=== PATIENT | female | born 1945 | race African-American/Black ===

== ENCOUNTER 2020-12-21 08:47 | Inpatient (IN) | payer MEDICARE, MEDICAID ==
[2020-12-21] VITALS (7 sets, daily range): BP systolic 123–146; BP diastolic 51–71
[~2020-12-21] VITALS: Ht 165.1 cm; Wt 129.8 kg
[2020-12-21] MEDS ORDERED: DIAZEPAM 2 MG TABLET PO ONE (09:00)
[2020-12-21 09:16] LABS: BASOPHILS % 0.3 % (0.0-2.0); HEMATOCRIT. 40.8 % (36.0-48.0); HEMOGLOBIN. 14.1 g/dL (12.0-16.0); MEAN CORPUSCULAR HEMOGLOBIN 36.5 pg (28.0-32.0); MEAN CORPUSCULAR VOLUME 105.4 fL (81.0-99.0); MEAN PLATELET VOLUME 9.6 fl (7.4-10.4); MONOCYTES % 10.5 % (2.0-8.0); NEUTROPHILS % 79.2 % (40.0-76.0); PLATELET 195 x1000/uL (130-400); RED BLOOD CELL COUNT 3.87 mill/uL (4.2-5.4); RED CELL DISTRIBUTION WIDTH 13.1 % (11.6-14.6)
[2020-12-21 09:23] LABS: CHLORIDE 100 mEq/L (98-107)
[2020-12-21] MEDS ORDERED: SODIUM CHLORIDE 0.9% 1,000 ML IV ONE (09:45)
[2020-12-21] MEDS ORDERED: INSULIN REGULAR (HUMULIN R) 300UNITS/3ML VIAL IV ONE (09:45)
[2020-12-21 10:18] LABS: BG BASE EXCESS -13.2 mmol/L (-2.0-2.0); BG CARBOXYHEMOGLOBIN 0.3 % (0.5-1.5); BG DEOXYHEMOGLOBIN 2.8 % (0.0-5.0); BG FRACTION INSPIRED OXYGEN 21; BG METHEMOGLOBIN 0.3 % (0.0-1.5); BG OXYGEN SATURATION 97.2 % (92.0-98.5); BG OXYHEMOGLOBIN 96.6 % (94.0-97.0); BG PCO2 22.8 mmHg (35.0-45.0); BG PH 7.303 (7.350-7.450); BG PO2 102.8 mmHg (75.0-100.0); BG SAMPLE SITE RIGHT BRACHIAL; BG TOTAL HEMOGLOBIN 14.4 g/dL (12.0-18.0); BG VENT MODE ROOM AIR
[2020-12-21 10:30] LABS: BETA HYDROXYBUTYRATE 7.9 mMol/L (0.0-0.3)
[2020-12-21] MEDS ORDERED: INSULIN REGULAR (DRIP) 100 UNITS in SODIUM CHLORIDE 0.9% 99 ML IV ONE (11:00)
[2020-12-21] MEDS ORDERED: DEXTROSE 50% WATER 50ML SYRINGE IV PRN (12:00)
[2020-12-21] MEDS ORDERED: ASPIRIN 81MG TABLET PO ONE (12:15)
[2020-12-21] MEDS ORDERED: HYDROCODONE/ACETAMINOPHEN 5/325MG TABLET PO PRN (12:30)
[2020-12-21] MEDS ORDERED: CLONIDINE 0.1MG TABLET PO PRN (12:30)
[2020-12-21] MEDS ORDERED: ACETAMINOPHEN 650MG SUPP PR PRN (12:30)
[2020-12-21] MEDS ORDERED: MAGNESIUM/ALUMINUM HYDROXIDE/SIMETHICONE 30ML UDC PO PRN (12:30)
[2020-12-21] MEDS ORDERED: IPRATROPIUM/ALBUTEROL 0.5-3(2.5)MG/3ML NEB NEB PRN (12:30)
[2020-12-21] MEDS ORDERED: DIPHENHYDRAMINE 50MG/ML VIAL IV PRN (12:30)
[2020-12-21] MEDS ORDERED: MORPHINE SULFATE 2 MG/ML CPJ (NOT FOR IM USE) IV PRN (12:30)
[2020-12-21] MEDS ORDERED: GUAIFENESIN 200MG/10ML SUGAR FREE UDC PO PRN (12:30)
[2020-12-21] MEDS ORDERED: ONDANSETRON HCL 4MG/2ML INJ IV PRN (12:30)
[2020-12-21] MEDS ORDERED: NA PHOS,M-B/NA PHOS,DI-BA ENEMA 118ML PR PRN (12:30)
[2020-12-21] MEDS ORDERED: FAMOTIDINE 20MG/2ML VIAL IV SCH (13:00)
[2020-12-21] MEDS ORDERED: PIPERACILLIN/TAZ 3.375G PREMIX 50 ML IV SCH (13:00)
[2020-12-21] MEDS ORDERED: SODIUM CHLORIDE 0.9% 1,000 ML IV SCH ×2 (13:00→18:45)
[2020-12-21] MEDS ORDERED: INSULIN REGULAR (DRIP) 100 UNITS in SODIUM CHLORIDE 0.9% 99 ML IV PRN (13:00)
[2020-12-21 13:19] LABS: PHOSPHORUS 3.6 mg/dL (2.5-4.9)
[2020-12-21 13:22] LABS: PROTHROMBIN TIME 11.2 sec (9.6-11.0)
[2020-12-21 13:23] LABS: CREATINE KINASE MB FRACTION 5.7 ng/mL (0.5-3.6)
[2020-12-21 16:53] LABS: CHLORIDE 112 mEq/L (98-107)
[2020-12-21] MEDS ORDERED: IBUP-2029 PO (18:36)
[2020-12-21] MEDS ORDERED: IBUP-22 PO (18:36)
[2020-12-21] MEDS: BLOOD SUGAR DIAGNOSTIC STRIP TEST SCH ×6 (18:39→23:14)
[2020-12-21] MEDS: FAMOTIDINE 20MG/2ML VIAL IV SCH (18:43)
[2020-12-21 20:13] LABS: CHLORIDE 112 mEq/L (98-107)
[2020-12-21] MEDS: PIPERACILLIN/TAZOBACTAM 3.375 G in DEXT 5% WATER 100 ML IV SCH (21:05)
[2020-12-21] MEDS: ENOXAPARIN 40MG/0.4ML SYR SUBCUT SCH (21:06)
[2020-12-21 23:26] LABS: CREATINE KINASE MB FRACTION 5.4 ng/mL (0.5-3.6)
[2020-12-22] VITALS (46 sets, daily range): BP systolic 79–180; BP diastolic 28–144
[2020-12-22 00:20] LABS: CHLORIDE 116 mEq/L (98-107)
[2020-12-22] MEDS: BLOOD SUGAR DIAGNOSTIC STRIP TEST SCH ×10 (01:33→21:12)
[2020-12-22] MEDS: DEXT 5%/0.45% NACL KCL 20MEQ/L 1,000 ML IV SCH ×2 (02:28→10:05)
[2020-12-22] MEDS: PIPERACILLIN/TAZOBACTAM 3.375 G in DEXT 5% WATER 100 ML IV SCH ×4 (02:28→20:29)
[2020-12-22 04:05] LABS: CHLORIDE 116 mEq/L (98-107)
[2020-12-22 04:14] LABS: LDL CHOLESTEROL 67 mg/dL (5-100)
[2020-12-22 04:16] LABS: HDL CHOLESTEROL 61 mg/dL (40-59); T4 FREE 1.02 ng/dL (0.76-1.46)
[2020-12-22 06:38] LABS: BASOPHILS % 1.5 % (0.0-2.0); EOSINOPHILS % 0.6 % (0.0-5.0); HEMATOCRIT. 34.9 % (36.0-48.0); HEMOGLOBIN. 12.1 g/dL (12.0-16.0); LYMPHOCYTES % 16.1 % (20.0-50.0); MEAN CORPUSCULAR HEMOGLOBIN 35.7 pg (28.0-32.0); MEAN CORPUSCULAR VOLUME 102.7 fL (81.0-99.0); MEAN PLATELET VOLUME 9.7 fl (7.4-10.4); MONOCYTES % 13.4 % (2.0-8.0); NEUTROPHILS % 68.4 % (40.0-76.0); PLATELET 177 x1000/uL (130-400); RED CELL DISTRIBUTION WIDTH 13.3 % (11.6-14.6)
[2020-12-22] MEDS ORDERED: POTASSIUM CHLORIDE INJ 40 MEQ in DEXT 5% WATER 500 ML IV ONE (06:45)
[2020-12-22] MEDS ORDERED: POTASSIUM CHLORIDE 20MEQ/PACKET PO SCH (08:00)
[2020-12-22 08:47] LABS: CHLORIDE 116 mEq/L (98-107)
[2020-12-22] MEDS: ENOXAPARIN 40MG/0.4ML SYR SUBCUT SCH (10:04)
[2020-12-22] MEDS: ASPIRIN 81MG EC TABLET PO SCH (10:05)
[2020-12-22] MEDS: FAMOTIDINE 20MG/2ML VIAL IV SCH (10:05)
[2020-12-22] MEDS: INSULIN LISPRO 100 UNITS/ML SUBCUT SCH ×4 (10:45→21:11)
[2020-12-22] MEDS ORDERED: INSULIN GLARGINE UD 100 UNITS/ML SYR SUBCUT NR (11:00)
[2020-12-22] MEDS: SODIUM CHLORIDE 0.45% 1,000 ML IV SCH ×2 (11:17→21:13)
[2020-12-22 13:19] LABS: CHLORIDE 115 mEq/L (98-107)
[2020-12-22 13:28] LABS: CREATINE KINASE MB FRACTION 5.4 ng/mL (0.5-3.6)
[2020-12-22 13:33] LABS: CREATINE KINASE 927 IU/L (26-192)
[2020-12-22 14:25] LABS: CLARITY URINE CLOUDY (CLEAR); COLOR URINE YELLOW (YELLOW); KETONES URINE 1+ (NEGATIVE); LEUKOCYTE ESTERASE URINE TRACE (NEGATIVE); NITRITE URINE NEGATIVE (NEGATIVE); OCCULT BLOOD URINE 3+ (NEGATIVE); PH URINE 5.5 (4.5-8.0); PROTEIN URINE TRACE (NEGATIVE); SPECIFIC GRAVITY URINE 1.012 (1.005-1.030); UROBILINOGEN URINE 0.2 E.U./dL (0.2-1.0)
[2020-12-22] MEDS: FLUCONAZOLE 100MG TABLET PO SCH (16:28)
[2020-12-22] MEDS: AMLODIPINE 5MG TABLET PO SCH (16:28)
[2020-12-22] MEDS: METFORMIN HCL 500MG TABLET PO SCH (18:16)
[2020-12-22 19:59] LABS: CHLORIDE 112 mEq/L (98-107)
[2020-12-22] MEDS: INSULIN GLARGINE UD 100 UNITS/ML SYR SUBCUT SCH (21:12)
[2020-12-22] MEDS: ENOXAPARIN 30MG/0.3ML SYR SUBCUT SCH (21:13)
[2020-12-22] MEDS ORDERED: INSULIN GLARGINE UD 100 UNITS/ML SYR SUBCUT SCH (22:00)
[2020-12-22] MEDS: ACETAMINOPHEN 325MG TABLET PO PRN (22:54)
[2020-12-23] VITALS (8 sets, daily range): BP systolic 116–140; BP diastolic 56–88
[2020-12-23] MEDS: PIPERACILLIN/TAZOBACTAM 3.375 G in DEXT 5% WATER 100 ML IV SCH ×4 (01:18→20:39)
[2020-12-23] MEDS ORDERED: DILTIAZEM HCL 5MG/ML 5ML VIAL IV SCH (05:00)
[2020-12-23 07:00] LABS: HEMATOCRIT. 36.2 % (36.0-48.0); HEMOGLOBIN. 12.7 g/dL (12.0-16.0); MEAN CORPUSCULAR HEMOGLOBIN 35.5 pg (28.0-32.0); MEAN CORPUSCULAR VOLUME 101.1 fL (81.0-99.0); MEAN PLATELET VOLUME 9.7 fl (7.4-10.4); PLATELET 174 x1000/uL (130-400); RED BLOOD CELL COUNT 3.58 mill/uL (4.2-5.4)
[2020-12-23] MEDS: BLOOD SUGAR DIAGNOSTIC STRIP TEST SCH ×4 (07:02→20:39)
[2020-12-23] MEDS: ACETAMINOPHEN 325MG TABLET PO PRN (07:02)
[2020-12-23 07:08] LABS: CHLORIDE 110 mEq/L (98-107)
[2020-12-23] MEDS ORDERED: DILTIAZEM HCL 125 MG in DEXT 5% WATER 100 ML IV SCH (08:00)
[2020-12-23] MEDS: FAMOTIDINE 20MG/2ML VIAL IV SCH (08:41)
[2020-12-23] MEDS: FLUCONAZOLE 100MG TABLET PO SCH (08:42)
[2020-12-23] MEDS: AMLODIPINE 5MG TABLET PO SCH (08:42)
[2020-12-23] MEDS: METFORMIN HCL 500MG TABLET PO SCH ×2 (08:42→18:00)
[2020-12-23] MEDS: ENOXAPARIN 30MG/0.3ML SYR SUBCUT SCH ×2 (08:42→20:39)
[2020-12-23] MEDS: ASPIRIN 81MG EC TABLET PO SCH (08:42)
[2020-12-23] MEDS: INSULIN LISPRO 100 UNITS/ML SUBCUT SCH ×4 (08:51→20:41)
[2020-12-23] MEDS: DOCUSATE SODIUM 100MG CAPSULE PO PRN (10:07)
[2020-12-23] MEDS: INSULIN GLARGINE UD 100 UNITS/ML SYR SUBCUT SCH ×2 (10:19→21:18)
[2020-12-23] MEDS: SODIUM CHLORIDE 0.45% 1,000 ML IV SCH (11:48)
[2020-12-23] MEDS ORDERED: DILTIAZEM HCL 30MG TABLET PO SCH (12:00)
[2020-12-23] MEDS ORDERED: POTASSIUM CHLORIDE 20MEQ TABLET SR PO SCH (14:00)
[2020-12-23] MEDS ORDERED: INSULIN GLARGINE UD 100 UNITS/ML SYR SUBCUT NR (14:00)
[2020-12-23] MEDS: DILTIAZEM HCL 30MG TABLET PO SCH (18:00)
[2020-12-23] MEDS: FAMOTIDINE 20MG TABLET PO SCH (20:38)
[2020-12-23 20:59] LABS: PLATELET ESTIMATE NORMAL
[2020-12-24] VITALS (10 sets, daily range): BP systolic 127–149; BP diastolic 65–131
[2020-12-24] MEDS: DILTIAZEM HCL 30MG TABLET PO SCH ×4 (00:49→18:43)
[2020-12-24] MEDS: SODIUM CHLORIDE 0.45% 1,000 ML IV SCH ×2 (00:49→14:50)
[2020-12-24] MEDS: PIPERACILLIN/TAZOBACTAM 3.375 G in DEXT 5% WATER 100 ML IV SCH ×4 (01:14→19:53)
[2020-12-24] MEDS: BLOOD SUGAR DIAGNOSTIC STRIP TEST SCH ×4 (07:30→19:53)
[2020-12-24 08:22] LABS: CHLORIDE 107 mEq/L (98-107); HEMATOCRIT. 34.5 % (36.0-48.0); HEMOGLOBIN. 12.2 g/dL (12.0-16.0); MEAN CORPUSCULAR VOLUME 101.8 fL (81.0-99.0); MEAN PLATELET VOLUME 9.4 fl (7.4-10.4); PLATELET 160 x1000/uL (130-400); RED BLOOD CELL COUNT 3.39 mill/uL (4.2-5.4)
[2020-12-24] MEDS: ENOXAPARIN 30MG/0.3ML SYR SUBCUT SCH ×2 (08:38→20:13)
[2020-12-24] MEDS: FLUCONAZOLE 100MG TABLET PO SCH (08:39)
[2020-12-24] MEDS: ASPIRIN 81MG EC TABLET PO SCH (08:39)
[2020-12-24] MEDS: METFORMIN HCL 500MG TABLET PO SCH ×2 (08:39→18:42)
[2020-12-24] MEDS: FAMOTIDINE 20MG TABLET PO SCH ×2 (08:39→20:13)
[2020-12-24] MEDS: INSULIN LISPRO 100 UNITS/ML SUBCUT SCH ×4 (08:41→20:14)
[2020-12-24] MEDS: ACETAMINOPHEN 325MG TABLET PO PRN (10:22)
[2020-12-24] MEDS: INSULIN GLARGINE UD 100 UNITS/ML SYR SUBCUT SCH ×2 (11:47→21:29)
[2020-12-24] MEDS ORDERED: INSULIN GLARGINE UD 100 UNITS/ML SYR SUBCUT NR ×2 (14:30→15:30)
[2020-12-24] MEDS: DOCUSATE SODIUM 100MG CAPSULE PO PRN (14:50)
[2020-12-24 18:46] LABS: CLARITY URINE CLEAR (CLEAR); COLOR URINE YELLOW (YELLOW); KETONES URINE NEGATIVE (NEGATIVE); LEUKOCYTE ESTERASE URINE NEGATIVE (NEGATIVE); NITRITE URINE NEGATIVE (NEGATIVE); OCCULT BLOOD URINE TRACE (NEGATIVE); PH URINE 5.5 (4.5-8.0); PROTEIN URINE NEGATIVE (NEGATIVE); SPECIFIC GRAVITY URINE 1.011 (1.005-1.030); UROBILINOGEN URINE 0.2 E.U./dL (0.2-1.0)
[2020-12-24 23:56] LABS: PLATELET ESTIMATE NORMAL
[2020-12-25] MEDS: DILTIAZEM HCL 30MG TABLET PO SCH ×4 (00:01→17:56)
[2020-12-25] MEDS: PIPERACILLIN/TAZOBACTAM 3.375 G in DEXT 5% WATER 100 ML IV SCH ×3 (02:00→15:12)
[2020-12-25] MEDS: SODIUM CHLORIDE 0.45% 1,000 ML IV SCH ×2 (03:46→17:08)
[2020-12-25 04:03] VITALS: BP 121/60
[2020-12-25] MEDS: BLOOD SUGAR DIAGNOSTIC STRIP TEST SCH ×3 (07:30→17:51)
[2020-12-25 07:44] VITALS: BP 128/67
[2020-12-25 07:47] LABS: CHLORIDE 107 mEq/L (98-107)
[2020-12-25] MEDS: METFORMIN HCL 500MG TABLET PO SCH ×2 (08:02→17:56)
[2020-12-25] MEDS: FAMOTIDINE 20MG TABLET PO SCH (08:03)
[2020-12-25] MEDS: FLUCONAZOLE 100MG TABLET PO SCH (08:03)
[2020-12-25] MEDS: ASPIRIN 81MG EC TABLET PO SCH (08:03)
[2020-12-25] MEDS: ENOXAPARIN 30MG/0.3ML SYR SUBCUT SCH (08:03)
[2020-12-25] MEDS: INSULIN LISPRO 100 UNITS/ML SUBCUT SCH ×3 (08:07→17:58)
[2020-12-25 08:36] LABS: HEMATOCRIT. 34.1 % (36.0-48.0); MEAN CORPUSCULAR HEMOGLOBIN 35.8 pg (28.0-32.0); MEAN CORPUSCULAR VOLUME 101.2 fL (81.0-99.0); MEAN PLATELET VOLUME 9.4 fl (7.4-10.4); PLATELET 173 x1000/uL (130-400); RED BLOOD CELL COUNT 3.37 mill/uL (4.2-5.4); RED CELL DISTRIBUTION WIDTH 13.2 % (11.6-14.6)
[2020-12-25] MEDS ORDERED: POTASSIUM CHLORIDE 20MEQ TABLET SR PO NR (10:15)
[2020-12-25] MEDS ORDERED: LACTULOSE 20G/30ML UDC PO NR (10:45)
[2020-12-25] MEDS ORDERED: LACTULOSE 20G/30ML UDC PO PRN (10:45)
[2020-12-25] MEDS: INSULIN GLARGINE UD 100 UNITS/ML SYR SUBCUT SCH (10:54)
[2020-12-25 12:00] VITALS: BP 126/70
[2020-12-25 16:00] VITALS: BP 130/68
[2020-12-25 16:32] VITALS: BP 142/71
[2020-12-25 18:43] VITALS: BP 136/75
[2020-12-25 20:59] LABS: PLATELET ESTIMATE NORMAL
== END 2020-12-25 18:55 | DRG 637 ==
LOC: ER 08:50 → EDBEDREQSVC 10:55 → SUPCPDRO 12:20 → CVICU 12:57 → EDBEDREQTM 13:02 → EDBEDREQ 13:02 → ENRESERV 17:25 → 6WST 12-22 17:35 → 5EST 12-23 13:13
PROVIDERS: ADMIT Internal Medicine; ATTEND Internal Medicine
PROC: 02HV33Z Insertion of Infusion Device into Superior Vena Cava, Percutaneous Approach (ICD-10-PCS; principal; 2020-12-21)
PROC: B548ZZA Ultrasonography of Superior Vena Cava, Guidance (ICD-10-PCS; 2020-12-21)
DX: E11.10 Type 2 diabetes mellitus with ketoacidosis without coma (principal); I50.33 Acute on chronic diastolic (congestive) heart failure; J18.9 Pneumonia, unspecified organism; I47.1 Supraventricular tachycardia; E66.2 Morbid (severe) obesity with alveolar hypoventilation; B37.49 Other urogenital candidiasis; Z68.42 Body mass index [BMI] 45.0-49.9, adult; I11.0 Hypertensive heart disease with heart failure; R26.89 Other abnormalities of gait and mobility; M19.90 Unspecified osteoarthritis, unspecified site; M79.674 Pain in right toe(s); Z20.822 Contact with and (suspected) exposure to COVID-19; W18.39XA Other fall on same level, initial encounter; Y93.89 Activity, other specified; Y92.89 Other specified places as the place of occurrence of the external cause; Z88.2 Allergy status to sulfonamides; Y99.8 Other external cause status
CPT/HCPCS: 36415; 36600; 71045; 73630; 76937; 78580; 80048; 80053; 80061; 81003; 82010; 82375; 82550; 82553; 82805; 82962; 83036; 83735; 83880; 83930; 84100; 84132; 84145; 84439; 84443; 84484; 85025; 85379; 87106; 87426; 93005; 93306; 93970; 97161; 99291; C1725; J1650; J1815; J2543; J3490; J7030; J7050; J7060

== ENCOUNTER 2025-06-14 22:12 | Inpatient (IN) | payer MEDICARE, MEDICAID ==
[~2025-06-14] VITALS: Ht 165.1 cm; Wt 132.9 kg
[2025-06-14 23:30] VITALS: PULSE 110; RESP 25; O2SAT 94; O2SAT 95
[2025-06-14] MEDS: METOCLOPRAMIDE HCL 10MG/2ML VIAL IV ONE (23:32)
[2025-06-14] MEDS: PIPERACILLIN/TAZO 3.375G/50ML 50 ML IV ONE (23:32)
[2025-06-14] MEDS: SODIUM CHLORIDE 0.9% 1,000 ML IV ONE (23:32)
[2025-06-14 23:45] LABS: BASOPHILS % 0.5 % (0.0-2.0); EOSINOPHILS % 0.3 % (0.0-5.0); HEMATOCRIT. 43.1 % (36.0-48.0); HEMOGLOBIN. 14.6 g/dL (12.0-16.0); LYMPHOCYTES % 24.2 % (20.0-50.0); MEAN PLATELET VOLUME 9.1 fl (7.4-10.4); MONOCYTES % 6.0 % (2.0-8.0); NEUTROPHILS % 69.0 % (40.0-76.0); PLATELET 225 x1000/uL (130-400); RED BLOOD CELL COUNT 4.25 mill/uL (4.2-5.4); RED CELL DISTRIBUTION WIDTH 13.0 % (11.6-14.6)
[2025-06-14 23:57] LABS: CREATININE 1.0 mg/dL (0.6-1.0); INR 1.0; UREA NITROGEN BLOOD 17 mg/dL (9-23)
[2025-06-14] MEDS: VANCOMYCIN 1G PREMIX 200 ML IV ONE (23:57)
[2025-06-14 23:58] LABS: ASPARTATE AMINOTRANSFERASE 18 IU/L (<34)
[2025-06-14] MEDS: IOHEXOL-350 100 ML BOTTLE ONE (23:58)
[2025-06-14 23:59] LABS: BILIRUBIN DIRECT < 0.1 mg/dL (<=3.0); BILIRUBIN TOTAL 0.4 mg/dL (0.1-1.0); PROTEIN TOTAL 7.9 g/dL (6.0-8.3)
[2025-06-15] VITALS (12 sets, daily range): BP systolic 150–177; BP diastolic 56–141; PULSE 91–117; RESP 15–27; TEMP 36.6–36.8; O2SAT 94–100
[2025-06-15 00:04] LABS: TROPONIN I HIGH SENSITIVITY 74 ng/L (3.0-34)
[2025-06-15] MEDS: HYDRALAZINE 20MG/ML VIAL IV ONE (01:15)
[2025-06-15] MEDS: CLOPIDOGREL 75MG TABLET PO ONE (01:15)
[2025-06-15] MEDS: ASPIRIN 325MG EC TABLET PO ONE (01:16)
[2025-06-15] MEDS ORDERED: LACTATED RINGERS 1,000 ML IV ONE (01:30)
[2025-06-15] MEDS ORDERED: DEXTROSE 50% WATER 50ML SYRINGE IV PRN ×2 (01:30→08:30)
[2025-06-15] MEDS ORDERED: ACETAMINOPHEN 325MG TABLET PO PRN (01:30)
[2025-06-15] MEDS ORDERED: ONDANSETRON HCL 4MG/2ML INJ IV PRN (01:30)
[2025-06-15] MEDS ORDERED: MAGNESIUM/ALUMINUM HYDROXIDE/SIMETHICONE 30ML UDC PO PRN (01:30)
[2025-06-15] MEDS ORDERED: IPRATROPIUM/ALBUTEROL 0.5-3(2.5)MG/3ML NEB HHN PRN (01:30)
[2025-06-15] MEDS ORDERED: GUAIFENESIN 200MG/10ML SUGAR FREE UDC PO PRN (01:30)
[2025-06-15] MEDS: DILTIAZEM HCL 60MG TABLET PO SCH (02:37)
[2025-06-15] MEDS ORDERED: DOXYCYCLINE 100MG/100ML 100 ML IV SCH (06:00)
[2025-06-15] MEDS: PIPERACILLIN/TAZO 3.375G/50ML 50 ML IV SCH (06:00)
[2025-06-15 06:49] LABS: TRIGLYCERIDE 110.0 mg/dL (0-150)
[2025-06-15 06:50] LABS: LDL CHOLESTEROL 122.0 mg/dL (5-100)
[2025-06-15 06:52] LABS: PHOSPHORUS 2.9 mg/dL (2.5-4.9)
[2025-06-15 07:07] LABS: FOLIC ACID (FOLATE) SERUM 14.93 ng/mL (>5.38)
[2025-06-15 07:08] LABS: VITAMIN B12 SERUM 410 pg/mL (211-911)
[2025-06-15 07:16] LABS: BG BASE EXCESS -0.8 mmol/L (-2.0-3.0); BG CARBOXYHEMOGLOBIN 1.0 % (0.5-1.5); BG DEOXYHEMOGLOBIN 0.8 % (0.0-5.0); BG FLOW(L/min) 30.00 L/min; BG FRACTION INSPIRED OXYGEN 100; BG HCO3 ACT 24.0 mmol/L (21.0-28.0); BG METHEMOGLOBIN 0.2 % (0.5-1.5); BG OXYGEN SATURATION 99.2 % (94.0-98.0); BG OXYHEMOGLOBIN 98.0 % (94.0-98.0); BG PCO2 40.4 mmHg (32.0-45.0); BG PH 7.392 (7.350-7.450); BG PO2 157.6 mmHg (83.0-108.0); BG SAMPLE SITE RIGHT RADIAL; BG TOTAL HEMOGLOBIN 15.4 g/dL (12.0-16.0); BG VENT MODE HIGH FLOW
[2025-06-15] MEDS: ATORVASTATIN CALCIUM 40MG TABLET PO SCH (07:20)
[2025-06-15] MEDS: MAGNESIUM 4 G PREMIX 100 ML IV NR (07:21)
[2025-06-15 07:22] LABS: TROPONIN I HIGH SENSITIVITY 241 ng/L (3.0-34)
[2025-06-15] MEDS: METHYLPREDNISOLONE SOD SUCC 125MG/2ML (ACT-O-VIAL) IV SCH (07:30)
[2025-06-15] MEDS: IPRATROPIUM/ALBUTEROL 0.5-3(2.5)MG/3ML NEB HHN SCH (07:30)
[2025-06-15] MEDS: BLOOD SUGAR DIAGNOSTIC STRIP TEST SCH (07:30)
[2025-06-15] MEDS: INSULIN LISPRO 100 UNITS/ML SUBCUT SCH ×2 (08:30→09:34)
[2025-06-15] MEDS: GUAIFENESIN 600MG ER TABLET PO SCH (09:00)
[2025-06-15] MEDS: CLOPIDOGREL 75MG TABLET PO SCH (09:28)
[2025-06-15] MEDS: FAMOTIDINE 20MG TABLET PO SCH (09:29)
[2025-06-15] MEDS: ASPIRIN 81MG EC TABLET PO SCH (09:29)
[2025-06-15] MEDS: DOXYCYCLINE 100MG/100ML 100 ML IV SCH (11:17)
[2025-06-15] MEDS ORDERED: VANCOMYCIN 500 MG in DEXT 5% WATER 100 ML IV SCH (12:00)
[2025-06-15] MEDS ORDERED: BLOOD SUGAR DIAGNOSTIC STRIP TEST SCH (12:30)
[2025-06-15] MEDS: VANCOMYCIN 1GM PMX (XELLIA) 200 ML IV SCH (15:27)
[2025-06-15 17:00] LABS: TROPONIN I HIGH SENSITIVITY 325 ng/L (3.0-34)
[2025-06-15] MEDS: AMLODIPINE 5MG TABLET PO SCH (19:29)
[2025-06-15] MEDS: AZITHROMYCIN 500MG in D5W 250ML IV SCH (20:56)
[2025-06-15] MEDS: INSULIN GLARGINE 100 UNITS/ML SUBCUT SCH (22:19)
[2025-06-16] VITALS (9 sets, daily range): BP systolic 151–180; BP diastolic 55–80; PULSE 83–105; RESP 20–28; TEMP 36.3–36.7; O2SAT 92–98
[2025-06-16 05:37] LABS: HEMATOCRIT. 37.4 % (36.0-48.0); HEMOGLOBIN. 12.8 g/dL (12.0-16.0); MEAN PLATELET VOLUME 8.8 fl (7.4-10.4); PLATELET 192 x1000/uL (130-400); RED BLOOD CELL COUNT 3.68 mill/uL (4.2-5.4); RED CELL DISTRIBUTION WIDTH 13.4 % (11.6-14.6)
[2025-06-16 06:00] LABS: CREATININE 1.1 mg/dL (0.6-1.0)
[2025-06-16 06:01] LABS: UREA NITROGEN BLOOD 16 mg/dL (9-23)
[2025-06-16 06:07] LABS: T4 FREE 0.93 ng/dL (0.89-1.76)
[2025-06-16] MEDS: LOSARTAN 25 MG TABLET PO SCH ×2 (10:03→21:06)
[2025-06-16] MEDS: CLONIDINE 0.1MG TABLET PO PRN (13:17)
[2025-06-16] MEDS: HYDRALAZINE HCL 25MG TABLET PO SCH (14:00)
[2025-06-16 14:27] LABS: TROPONIN I HIGH SENSITIVITY 230 ng/L (3.0-34)
[2025-06-16] MEDS: INSULIN LISPRO 100 UNITS/ML SUBCUT SCH (14:30)
[2025-06-16] MEDS: FUROSEMIDE 20MG TABLET PO SCH (18:17)
[2025-06-16 18:51] LABS: LYMPHOCYTES % MANUAL 3.0 % (20.0-60.0); MONOCYTES % MANUAL 2.0 % (2.0-8.0); NEUTROPHILS % MANUAL 95.0 % (45.0-75.0); PLATELET ESTIMATE NORMAL
[2025-06-16] MEDS ORDERED: METHYLPREDNISOLONE SOD SUCC 40MG/ML (ACT-O-VIAL) IV SCH (21:00)
[2025-06-17] VITALS (10 sets, daily range): BP systolic 101–187; BP diastolic 57–92; PULSE 69–95; RESP 16–29; TEMP 36.2–36.7; O2SAT 95–98
[2025-06-17] MEDS: BUDESONIDE 0.5MG/2ML NEB HHN SCH (02:57)
[2025-06-17 07:23] LABS: CREATININE 1.0 mg/dL (0.6-1.0)
[2025-06-17 07:24] LABS: UREA NITROGEN BLOOD 31 mg/dL (9-23)
[2025-06-17 07:32] LABS: HEMATOCRIT. 37.1 % (36.0-48.0); HEMOGLOBIN. 12.8 g/dL (12.0-16.0); MEAN PLATELET VOLUME 9.0 fl (7.4-10.4); PLATELET 195 x1000/uL (130-400); RED BLOOD CELL COUNT 3.64 mill/uL (4.2-5.4); RED CELL DISTRIBUTION WIDTH 13.3 % (11.6-14.6)
[2025-06-17 07:46] LABS: TROPONIN I HIGH SENSITIVITY 139 ng/L (3.0-34)
[2025-06-17] MEDS: FLUTICASONE PROPIONATE 50MCG/SPRAY BOTTLE BOTHNSTRLS SCH (20:28)
[2025-06-17] MEDS: ENOXAPARIN 40MG/0.4ML SYR SUBCUT SCH (20:33)
[2025-06-17] MEDS: INSULIN GLARGINE 100 UNITS/ML SUBCUT SCH (21:22)
[2025-06-18] VITALS (9 sets, daily range): BP systolic 122–157; BP diastolic 44–80; PULSE 70–95; RESP 14–29; TEMP 36.2–37.1; O2SAT 94–100
[2025-06-18] MEDS: DOCUSATE SODIUM 100MG CAPSULE PO PRN (07:09)
[2025-06-18] MEDS ORDERED: DOCU-422 PO (07:29)
[2025-06-18] MEDS ORDERED: [UNRECOGNIZED DRUG - CODE] (07:29)
[2025-06-18] MEDS ORDERED: HYDR25TA78 PO (07:29)
[2025-06-18] MEDS ORDERED: LANTUSUD SUBCUT (07:29)
[2025-06-18] MEDS ORDERED: METF-1150 MT (07:29)
[2025-06-18] MEDS ORDERED: LOSA25TA26 PO (07:29)
[2025-06-18] MEDS ORDERED: DILT60TA4 PO (07:29)
[2025-06-18] MEDS ORDERED: EMPA10TA MT (07:29)
[2025-06-18] MEDS ORDERED: LANC1KIT (07:29)
[2025-06-18] MEDS ORDERED: LIP40 PO (07:29)
[2025-06-18] MEDS ORDERED: ASPI-1406 PO (07:29)
[2025-06-18 07:51] LABS: CREATININE 1.3 mg/dL (0.6-1.0)
[2025-06-18 07:52] LABS: BASOPHILS % 0.2 % (0.0-2.0); EOSINOPHILS % 0.1 % (0.0-5.0); HEMATOCRIT. 39.4 % (36.0-48.0); HEMOGLOBIN. 13.2 g/dL (12.0-16.0); LYMPHOCYTES % 10.4 % (20.0-50.0); MEAN PLATELET VOLUME 8.7 fl (7.4-10.4); MONOCYTES % 5.6 % (2.0-8.0); NEUTROPHILS % 83.7 % (40.0-76.0); PLATELET 222 x1000/uL (130-400); RED BLOOD CELL COUNT 3.82 mill/uL (4.2-5.4); RED CELL DISTRIBUTION WIDTH 13.5 % (11.6-14.6); UREA NITROGEN BLOOD 23 mg/dL (9-23)
[2025-06-18 07:53] LABS: PHOSPHORUS 3.7 mg/dL (2.5-4.9)
[2025-06-18] MEDS: INSULIN GLARGINE 100 UNITS/ML SUBCUT NR (08:35)
[2025-06-18] MEDS ORDERED: VANCOMYCIN 1.25GM/250ML 250 ML IV SCH (09:00)
[2025-06-18 12:02] LABS: BAND% 3.0 % (1.0-6.0); LYMPHOCYTES % MANUAL 2.0 % (20.0-60.0); MONOCYTES % MANUAL 2.0 % (2.0-8.0); NEUTROPHILS % MANUAL 93.0 % (45.0-75.0)
[2025-06-18 12:03] LABS: PLATELET ESTIMATE NORMAL
[2025-06-18] MEDS: FUROSEMIDE 40MG/4ML VIAL IVP SCH (12:39)
[2025-06-18] MEDS ORDERED: HYDR25TA78 MT (19:04)
[2025-06-18] MEDS ORDERED: DILT60TA35 MT (19:04)
[2025-06-18] MEDS ORDERED: ATOR40TA70 MT (19:04)
[2025-06-18] MEDS ORDERED: ASPI-1497 MT (19:04)
[2025-06-18] MEDS ORDERED: INSU100I28 SQ (19:04)
[2025-06-18] MEDS ORDERED: FLAS1EAC2 MC (19:04)
[2025-06-18] MEDS ORDERED: LANC-493 TP (19:04)
== END 2025-06-18 16:48 | disposition home or self-care (01) | DRG 871 ==
LOC: ER 22:12 → EDBEDREQTM 06-15 01:06 → EDBEDREQ 06-15 01:06 → EDBEDREQDT 06-15 01:06 → EDBEDREQSVC 06-15 01:06 → ENRESERV 06-15 01:10 → 5EST 06-15 01:48
PROVIDERS: ADMIT Internal Medicine; ATTEND Internal Medicine
PROC: 5A0935A Assistance with Respiratory Ventilation, Less than 24 Consecutive Hours, High Flow/Velocity Cannula (ICD-10-PCS; principal; 2025-06-15)
PROC: 5A2204Z Restoration of Cardiac Rhythm, Single (ICD-10-PCS; 2025-06-15)
DX: A41.9 Sepsis, unspecified organism (principal); I21.4 Non-ST elevation (NSTEMI) myocardial infarction; J18.9 Pneumonia, unspecified organism; J96.01 Acute respiratory failure with hypoxia; G93.40 Encephalopathy, unspecified; E87.20 Acidosis, unspecified; E66.2 Morbid (severe) obesity with alveolar hypoventilation; D75.89 Other specified diseases of blood and blood-forming organs; E11.65 Type 2 diabetes mellitus with hyperglycemia; I10 Essential (primary) hypertension; I47.10 Supraventricular tachycardia, unspecified; Z68.42 Body mass index [BMI] 45.0-49.9, adult; I48.91 Unspecified atrial fibrillation; E83.42 Hypomagnesemia; R29.810 Facial weakness; T38.0X5A Adverse effect of glucocorticoids and synthetic analogues, initial encounter; Z79.4 Long term (current) use of insulin; Z88.2 Allergy status to sulfonamides; Y92.89 Other specified places as the place of occurrence of the external cause; E78.5 Hyperlipidemia, unspecified
CPT/HCPCS: 36415; 36600; 70496; 70498; 71045; 71046; 80048; 80061; 80076; 80202; 80320; 82010; 82375; 82550; 82607; 82746; 82805; 82962; 83036; 83605; 83735; 83880; 83930; 84100; 84145; 84439; 84443; 84484; 85025; 92610; 92960; 93005; 93306; 93970; 94070; 94640; 94664; 96365; 96368; 96375; 97162; 97166; 98960; 99291; A4606; A4615; J0360; J0456; J1650; J1815; J1938; J2543; J2765; J2919; J3373; J3475; J3490; J7030; J7060; J7626; Q9967; G0480